=== PATIENT | female | born 1960 | race Caucasian/White ===

== ENCOUNTER 2018-05-18 08:56 | Outpatient (CLI) | payer OTHER | END 2018-05-18 08:57 | disposition home or self-care (01) | LOC: BICRAD 08:56 | PROVIDERS: ATTEND Family Medicine | DX: S20.212A Contusion of left front wall of thorax, initial encounter (principal) ==

== ENCOUNTER 2020-06-12 00:39 | Inpatient (IN) | payer BC, OTHER ==
[2020-06-12] MEDS ORDERED: Morphine 4 MG/ML VIAL SLOW IVP PRN ×2 (02:29→19:29)
[2020-06-12] MEDS ORDERED: Ondansetron ODT 4 MG TAB SL PRN (02:30)
[2020-06-12] MEDS ORDERED: Ondansetron PF 4 MG/2 ML Vial IVP PRN ×2 (02:30→19:29)
[2020-06-12] MEDS ORDERED: Sodium Chloride 0.9% (PF) 10 ML VIAL FS PRN (02:30)
[2020-06-12] MEDS: Piperacillin/Tazobactam 4.5 GM in Sodium Chloride 0.9% 100 ML IVPB SCH ×3 (02:41→23:20)
[2020-06-12 03:02] VITALS: BMI 49.8
[2020-06-12] MEDS ORDERED: PROPOFOL 200 MG/20 ML VIAL ONE (09:00)
[2020-06-12] MEDS ORDERED: Glycopyrrolate 0.2 MG/ML 5 ML SYRINGE ONE (09:00)
[2020-06-12] MEDS ORDERED: Rocuronium Bromide 10 MG/ML (10ML VIAL) ONE (09:00)
[2020-06-12] MEDS ORDERED: Succinylcholine Chloride 20 MG/ML 10 ml SYRINGE FS ONE (09:00)
[2020-06-12] MEDS ORDERED: Ketorolac Tromethamine 30 MG/ML VIAL ONE (09:00)
[2020-06-12] MEDS ORDERED: EPHEDRINE 25 MG/5 ML SYRINGE ONE (09:00)
[2020-06-12] MEDS ORDERED: Pantoprazole 40 MG VIAL IVP SCH (09:00)
[2020-06-12] MEDS ORDERED: Ondansetron PF 4 MG/2 ML Vial ONE (09:00)
[2020-06-12] MEDS ORDERED: Lidocaine 1% PF 5 ML VIAL ONE (09:00)
[2020-06-12] MEDS ORDERED: Dexamethasone 20 MG/5 ML VIAL ONE (09:00)
--- NOTE | 2020-06-12 10:46 | HP ---
CHIEF COMPLAINT: Abdominal pain. HISTORY OF PRESENT ILLNESS: The patient is a morbidly obese 60-year-old white female. She gives about a 4- to 5-day history of fairly severe abdominal pain. This has been evaluated in outpatient settings and treated with antibiotics without change in symptoms. She denies any abdominal symptoms previously. She has had a decreased appetite, but no vomiting. She has still had bowel movements, but has noted some change in the quality or characteristics of her bowel function recently. She eventually presented to the emergency room in [place] last night, where CT scan was performed revealing evidence of small-bowel perforation with what appeared to be mesenteric air. There was no diffuse abdominal air and she was hemodynamically stable with a surprisingly normal white blood cell count. She was transferred to this facility and admitted to my service. She has been n.p.o. and placed on intravenous antibiotics. She has never had a colonoscopy. She denies any knowledge of any gastrointestinal malignancy or inflammatory process. She denies any history of recent trauma. She is unaware of eating anything that may have led to a perforation. PAST MEDICAL HISTORY: Significant for depression. 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 PAST SURGICAL HISTORY: 1. Ganglion cyst removal from her right hand. 2. Removal of left thigh liposarcoma. MEDICATIONS: 1. Wellbutrin. 2. Lexapro. ALLERGIES: NO KNOWN DRUG ALLERGIES. PRIMARY CARE PHYSICIAN: Dr. Meza. PERSONAL AND SOCIAL HISTORY: She lives with her cousin in [place]. She is not and has no children. She does not smoke. She drinks alcohol rarely. She works at [email or web address]. REVIEW OF SYSTEMS: A 10-system review was obtained and is otherwise unremarkable. FAMILY HISTORY: Noncontributory. PHYSICAL EXAMINATION: VITAL SIGNS: This morning, she is afebrile with entirely normal vital signs. Pulse is 72. She is breathing without difficulty and comfortable when laying still. GENERAL: She is a well-developed, well-nourished, obese, pleasant white female, resting in no distress. She is alert and oriented x3. She is 5 feet 5 inches tall and weighs about 300 pounds. HEAD, EYES, EARS, NOSE, AND THROAT: Unremarkable. NECK: Supple without mass or tenderness. LUNGS: Clear to auscultation throughout. CARDIAC: Regular rate and rhythm without murmur. ABDOMEN: Soft on the right side, but she has tenderness with some guarding on the left side. Bowel sounds are present, but hypoactive. EXTREMITIES: Unremarkable. LABORATORY DATA: From last night revealed normal white blood cell count of 9.4. She is not anemic and her electrolytes are stable. ASSESSMENT: The patient with a small bowel perforation. This appears to be in the mid segment of her small bowel. The etiology of this perforation is not apparent. Differential could include neoplasm, inflammatory process (Crohn's), malignancy, foreign body. I recommend exploration with small bowel resection. I would anticipate performing this as a laparoscopic hand assisted procedure. I described the operation in detail with the patient as well as potential risks. She understands and agrees to proceed with surgery at this time. Job ID: [id number]
[2020-06-12 13:55] LABS: SARS-CoV-2 MS2 Positive; SARS-CoV-2 N Gene Negative; SARS-CoV-2 S Gene Negative; SARS-CoV-2 by NAA Not Detected (NotDetected); SARS-CoV-2 orf1ab Negative
[2020-06-12] MEDS ORDERED: Lidocaine 1% w/Epinephrine 1:100K 20 ML VIAL ONE (14:38)
[2020-06-12] MEDS ORDERED: Bupivacaine 0.25% HCL 30 ML VIAL ONE (14:38)
[2020-06-12] MEDS ORDERED: Piperacillin/Tazobactam 4.5 GM in Sodium Chloride 0.9% 100 ML IVPB SCH (15:15)
[2020-06-12] MEDS ORDERED: HYDROmorphone 2 MG/ML VIAL ONE (15:44)
[2020-06-12] MEDS ORDERED: Fentanyl 100 MCG/2 ML VIAL ONE (15:44)
[2020-06-12] MEDS ORDERED: Phenylephrine 10 MG/ML VIAL ONE (15:45)
[2020-06-12] MEDS ORDERED: SUGAMMADEX SODIUM 500 MG/5 ML VIAL ONE (18:12)
[2020-06-12] MEDS ORDERED: Naloxone HCl 0.4 mg/ml Vial ONE (18:21)
[2020-06-12] MEDS ORDERED: PACU-Morphine 4MG/ML VIAL SLOW IVP PRN (18:41)
[2020-06-12] MEDS ORDERED: Promethazine HCl 25 MG/ML VIAL IM PRN ×2 (18:41→19:29)
[2020-06-12] MEDS ORDERED: Ondansetron HCl/PF 4 MG/2 ML Vial IVP PRN (18:41)
[2020-06-12] MEDS ORDERED: HYDROmorphone 2 MG/ML VIAL SLOW IVP PRN (18:41)
[2020-06-12] MEDS ORDERED: Promethazine HCl 25 MG/ML VIAL SLOW IVP PRN (18:41)
[2020-06-12] MEDS ORDERED: hydrALAZINE 20 MG/ML VIAL SLOW IVP PRN (19:29)
[2020-06-12] MEDS ORDERED: Morphine 2 MG/ML VIAL SLOW IVP PRN (19:29)
[2020-06-12] MEDS: Famotidine/PF 20 mg/2ml Vial SLOW IVP SCH (21:53)
[2020-06-12] MEDS: D5 1/2 NS w/20 mEq KCL 1,000 ML IV SCH (21:53)
[2020-06-12] MEDS: Famotidine 20 MG TAB PO SCH (21:54)
[2020-06-12] MEDS: Enoxaparin Sodium 40 MG/0.4 ML SYRINGE SC SCH (21:54)
[2020-06-12] MEDS: Ketorolac Tromethamine 30 MG/ML VIAL IVP SCH (23:21)
[2020-06-13] MEDS: D5 1/2 NS w/20 mEq KCL 1,000 ML IV SCH ×3 (04:21→23:55)
[2020-06-13] MEDS: Ketorolac Tromethamine 30 MG/ML VIAL IVP SCH ×4 (06:02→23:56)
[2020-06-13 06:27] LABS: #Lymphocytes 0.7 thou/uL (1.20-3.40); #Monocytes 0.4 thou/uL (0.11-0.59); #Neutrophils 9.8 thou/uL (1.40-6.50); %Basophils 0.2 % (0.0-1.0); %Eosinophils 0.1 % (0.0-10.0); %Lymphocytes 6.7 % (21.0-51.0); %Monocytes 3.3 % (0.0-10.0); %Neutrophils 89.7 % (42.0-75.0); Mean Corpuscular HGB CONC 31.4 g/dL (32.0-36.0); Mean Corpuscular Hemoglobin 27.9 pg (27.0-31.0); Mean Corpuscular Volume 88.9 fL (78.0-98.0); Mean Platelet Volume 7.4 fL (7.4-10.4); Platelet Count 289 thou/uL (130-400); RBC Distribution Width 13.4 % (11.5-14.5); Red Blood Cell (RBC) Count 4.29 mill/uL (4.20-5.40)
[2020-06-13 06:49] LABS: Anion Gap 11 mmol/L (10-20); BUN (Urea Nitrogen) 8 mg/dL (9.8-20.1); Calc. Creatinine Clearance 169 mL/min (70-130); Calcium 8.4 mg/dL (7.8-10.44); Carbon Dioxide 25 mmol/L (22-29); Chloride 104 mmol/L (98-107); Estimated GFR-MDRD 78; Glucose 170 mg/dL (70-105); Sodium 136 mmol/L (136-145)
[2020-06-13] MEDS: Famotidine 20 MG TAB PO SCH ×2 (07:55→21:02)
[2020-06-13] MEDS: Piperacillin/Tazobactam 4.5 GM in Sodium Chloride 0.9% 100 ML IVPB SCH ×2 (07:55→17:26)
[2020-06-13] MEDS: Famotidine/PF 20 mg/2ml Vial SLOW IVP SCH ×2 (07:56→21:03)
--- NOTE | 2020-06-13 15:52 | OP ---
DATE OF PROCEDURE: 06/12/2020 PREOPERATIVE DIAGNOSIS: Small-bowel perforation. POSTOPERATIVE DIAGNOSIS: Small-bowel perforation with minimal evidence of peritonitis. PROCEDURE PERFORMED: Laparoscopic-assisted segmental small bowel resection. ANESTHESIA: General endotracheal. INDICATIONS: The patient is a morbidly obese, 60-year-old white female. She had presented to the hospital with a 4 or 5-day history of progressive abdominal pain. She had diminished appetite, but was afebrile. She had focal palpable tenderness. I recommended laparoscopic small bowel resection as the etiology of the perforation was unknown. DESCRIPTION OF OPERATION: Informed consent was obtained and the patient was taken to the operating room, where general endotracheal anesthesia was obtained with the patient in supine position. Abdomen was prepped with ChloraPrep and draped in sterile fashion. Local anesthetic was infiltrated using a mixture of 1% lidocaine with epinephrine and 0.25% Marcaine. A 5 mm incision was created in the right upper lateral abdomen and Veress needle was passed through this incision into the peritoneal cavity and pneumoperitoneum was established using carbon dioxide up to pressure of 15 mmHg. A 5 mm trocar port was passed through the same incision and laparoscopic camera was passed through this port. Under direct vision, a second 5 mm right lower abdominal port was placed. Utilizing these two ports, I reflected the omentum in a cephalad direction. This quickly revealed the indurated/inflamed segment of small bowel that was protruding from the remainder of the bowel on the patient's left side of the abdomen. There was no evidence of peritonitis. There was certainly no blood or purulence noted within the abdominal cavity. An 8 mm oblique left upper abdominal incision was created after local anesthetic was infiltrated. Muscle splitting was used to gain access into the abdominal cavity. She had a very thick layer of subcutaneous fatty tissue. The Mich wound retractor was placed. I was able to quickly identify and deliver externally the inflamed segment of small bowel. It was approximately 9 inches of small bowel that was folded back on itself in a couple of areas. It was very thickened and adherent only to itself. These adhesions were broken down during the course of mobilizing it externally. Again, no purulence was noted. Only inflammation and induration. I identified segments of small bowel proximal and distal that were entirely normal and chose these for an anastomosis. I utilized the LigaSure device to dissect the mesentery including all of it that was thickened and inflamed, extending down into the base of the mesentery. Due to the thickness of the mesentery deeply, even using the LigaSure, I had to oversew a few bleeding sites. Once the mesentery had been fully mobilized between these two segments, I performed a double-stapled anastomosis using the CAESAR 75 stapler. During the time that the bowel was open, there were sterile towels placed circumferentially and segregated instruments were utilized. Immediately after the bowel was closed, all instrumentation was passed off the field and gloves were changed and the operation continued. The area of the bowel that was external was irrigated and all irrigant was aspirated. The anastomosis was then buttressed with several interrupted sutures of 3-0 silk. The mesenteric defect was closed with a running suture of 3-0 Vicryl. The bowel was then dropped back down to the abdominal cavity. I reinstituted laparoscopy. I placed my left hand through the GelPort, and utilizing this, I was able to retract the multiple loops of bowel out of her pelvis to be able to irrigate the pelvis. Again, no significant bloody or purulent material was noted. The anastomosis was widely patent and viable. All irrigant from within the abdomen was aspirated. All ports and instruments were removed under direct vision. The Mich wound retractor was removed as well. All laparoscopic instrumentation was passed off the field. Sterile closing instrumentation was utilized. The fascial defect at the left abdominal incision was closed in 2 layers using #1 PDS. The wound was copiously irrigated after each layer was closed using approximately 1 L each time. Additional local anesthetic was infiltrated into the wound and the interfascial plane during closure. The Haleigh fascia was approximated with interrupted sutures of 3-0 Vicryl. The skin edge was approximated with a running subcuticular suture of 4-0 Monocryl. Dermabond was placed externally. There were no complications during the surgery. Blood loss was negligible throughout. She tolerated the procedure well and was taken to recovery room in stable condition. Job ID: [id number]
[2020-06-13] MEDS ORDERED: HYDROcodone/Acetaminophen 7.5/325 mg Tablet PO PRN ×2 (18:30)
[2020-06-13] MEDS ORDERED: diphenhydrAMINE 25 MG CAP PO PRN (18:51)
[2020-06-13] MEDS ORDERED: traMADol HCl 50 MG TAB PO PRN ×2 (19:22)
[2020-06-13] MEDS ORDERED: Ibuprofen 600 MG TAB PO PRN ×2 (19:22→19:23)
[2020-06-13] MEDS ORDERED: Acetaminophen 500 MG TAB PO PRN (19:22)
--- NOTE | 2020-06-13 19:49 | PRG ---
DATE OF SERVICE: 06/13/2020 SUBJECTIVE: Nhi Raymond is doing well today. She is tolerating liquids. She has no complaints. OBJECTIVE: VITAL SIGNS: Temperature 97.7 degrees, 69, 149/82. LUNGS: Clear to auscultation. CARDIAC: Regular rate and rhythm. No murmur or gallop. ABDOMEN: Soft. Occasional bowel sounds. Surgical wounds look good. No evidence of infection. LABORATORY DATA: White count 11, hemoglobin 12. Basic metabolic profile normal. ASSESSMENT AND PLAN: Doing well tolerating her liquids. We will advance her to a full liquid diet tonight and a soft diet tomorrow as tolerated. Continue activity. It is possible she could be discharged home soon. Job ID: [id number]
[2020-06-13] MEDS: Enoxaparin Sodium 40 MG/0.4 ML SYRINGE SC SCH (21:02)
[2020-06-14] MEDS: D5 1/2 NS w/20 mEq KCL 1,000 ML IV SCH (05:37)
[2020-06-14] MEDS: Ketorolac Tromethamine 30 MG/ML VIAL IVP SCH ×3 (05:39→17:35)
[2020-06-14] MEDS: Famotidine 20 MG TAB PO SCH ×2 (08:44→21:18)
[2020-06-14] MEDS: Escitalopram Oxalate 20 mg Tablet PO SCH (08:44)
[2020-06-14] MEDS: Bupropion 150 MG XL TAB PO SCH (08:44)
[2020-06-14] MEDS: Polyethylene Glycol 3350 17 GM Packet PO SCH (08:45)
[2020-06-14] MEDS: Famotidine/PF 20 mg/2ml Vial SLOW IVP SCH (08:45)
[2020-06-14] MEDS ORDERED: Ergocalciferol 1.25 MG(50,000 UNITS) CAP PO SCH (09:00)
--- NOTE | 2020-06-14 12:29 | PRG ---
DATE OF SERVICE: 06/14/2020 SUBJECTIVE: Ms. Raymond is doing well today. She is tolerating her diet. She has started regular food today. She had a small bowel movement. OBJECTIVE: VITAL SIGNS: Temperature 98 degrees, pulse 74, blood pressure 168/84. LUNGS: Clear to auscultation. CARDIAC: Regular rate and rhythm without murmur or gallop. ABDOMEN: Obese, soft. Bowel sounds present. Wounds, laparoscopic, well healed. LABORATORY DATA: No labs today. ASSESSMENT AND PLAN: Doing well status post small-bowel resection. Pathology pending. Anticipate discharge home tomorrow. Job ID: [id number]
[2020-06-14] MEDS: Enoxaparin Sodium 40 MG/0.4 ML SYRINGE SC SCH (21:18)
[2020-06-15] MEDS: Ketorolac Tromethamine 30 MG/ML VIAL IVP SCH ×3 (00:28→12:26)
[2020-06-15] MEDS: Polyethylene Glycol 3350 17 GM Packet PO SCH (08:31)
[2020-06-15] MEDS: Escitalopram Oxalate 20 mg Tablet PO SCH (08:31)
[2020-06-15] MEDS: Famotidine 20 MG TAB PO SCH (08:32)
[2020-06-15] MEDS: Bupropion 150 MG XL TAB PO SCH (08:33)
[2020-06-15 11:40] VITALS: TEMP 98.5
[2020-06-15 15:50] VITALS: BP 157/88
--- NOTE | 2020-06-18 05:22 | PQF ---
CLINICAL DOCUMENTATION CLARIFICATION FORM: Dear :Irving Oconnell Date / Time: 06/18/20520 Please exercise your independent, professional judgment in responding to the clarification form. Clinical indicators are provided on the bottom of this form for your review Final Diagnosis on the Pathology report: Perforated diverticulitis with associated abscess formation Clarification of Pathology report: Please check appropriate box(es): [ x ] Agree w the pathology finding of: Perforated diverticulitis with associated abscess formation [ ] Other explanation of pathology findings (please specify) [ ] Other diagnosis [ ] Unable to determine Physician Signature: MWAlf Date/Time:06/18/20 For continuity of documentation, please document condition throughout progress notes and discharge summary. Thank You. To be completed by CDI/Coding staff for physician review: Present Clinical Indicators - Signs / Symptoms / Labs Results and Location in Medical Record [ X] Perforated diverticulitis with associated abscess formation Pathology report 06/15 DR Robledo [ X] BP 151/91, Pulse 72, Resp 18, Temp 98.3 Vital signs 06/12 [ X] WBC 11.0, Plt count 289, Neutrophils 89.7 Laboratory 06/13 [ X] Pt with small bowel perforation. This appears to be in mid segment of small bowel H&P p2 06/12 Dr Oconnell [ X] Small bowel Perforation with minimal evidence of peritonitis Operative report Dr Oconnell 06/12 [ X] CC: Abdominal pain H&P p1 06/12 Dr Oconnell Present Risk Factors Results and Location in Medical Record [ X] 60 year-old Female H&P p1 06/12 Dr Oconnell [ X] Morbid Obese H&P p1 06/12 Dr Oconnell Present Treatments Results and Location in Medical Record [ X] IV Zosyn 4.5 gm DEC 28 [ X] IVF NS 1L DEC 28 [ X] Lap-assisted segmental small bowel Operative report Dr Oconnell 06/12 [facility] Signature: Quin Colliersuleiman Phone #: ext [phone] Date/Time: 06/18/20520 This is a permanent part of the Medical Record [facility]
== END 2020-06-15 14:01 | disposition home or self-care (01) | DRG 329 ==
LOC: ERS 00:39 → SURG A 01:11
PROVIDERS: ADMIT Specialist; ATTEND Specialist
PROC: 0DB80ZZ Excision of Small Intestine, Open Approach (ICD-10-PCS; principal; 2020-06-12)
DX: K57.00 Diverticulitis of small intestine with perforation and abscess without bleeding (principal); K65.9 Peritonitis, unspecified; Z68.42 Body mass index [BMI] 45.0-49.9, adult; F32.9 Major depressive disorder, single episode, unspecified; Z20.828 Contact with and (suspected) exposure to other viral communicable diseases; E66.01 Morbid (severe) obesity due to excess calories; Z85.828 Personal history of other malignant neoplasm of skin; Z79.899 Other long term (current) drug therapy
CPT/HCPCS: 36415; 36416; 80048; 85025; 87635; 88307; 99285; C9113; J1100; J1170; J1650; J1885; J2270; J2310; J2370; J2405; J2543; J2704; J3010; J3480; J3490; Q0163; S0020; S0028; U0003

== ENCOUNTER 2023-02-13 16:43 | Emergency (ER) | payer BC ==
[2023-02-13 17:31] LABS: #Basophils 0.1 thou/uL (0.0-0.2); #Eosinphils 0.2 thou/uL (0.0-0.7); #Monocytes 0.5 thou/uL (0.11-0.59); %Eosinophils 2.2 % (0.0-10.0); %Lymphocytes 34.6 % (21.0-51.0); %Monocytes 5.2 % (0.0-10.0); %Neutrophils 56.9 % (42.0-75.0); Hemoglobin 14.4 g/dL (12.0-16.0); Mean Corpuscular HGB CONC 33.9 g/dL (32.0-36.0); Mean Corpuscular Hemoglobin 29.5 pg (27.0-31.0); Mean Corpuscular Volume 86.9 fl (78.0-98.0); Mean Platelet Volume 7.1 fL (7.4-10.4); Platelet Count 285 10x3/uL (130-400); Red Blood Cell (RBC) Count 4.89 mill/uL (4.20-5.40); White Blood Cell (WBC) Count 8.7 10x3/uL (4.8-10.8)
[2023-02-13 17:52] LABS: ALT (SGPT) 11 U/L (8-55); AST (SGOT) 16 U/L (5-34); Albumin 4.2 g/dL (3.4-4.8); Alkaline Phosphatase 91 U/L (40-110); Anion Gap 15 mmol/L (10-20); BUN (Urea Nitrogen) 16 mg/dL (9.8-20.1); Bilirubin, Total 0.4 mg/dL (0.2-1.2); Calc. Creatinine Clearance 0 mL/min (70-130); Calcium 9.5 mg/dL (7.8-10.44); Carbon Dioxide 26 mmol/L (23-31); Chloride 102 mmol/L (98-107); Estimated GFR 74; Globulin 3.1 g/dL (2.4-3.5); Glucose 88 mg/dL (80-115); Potassium 3.7 mmol/L (3.5-5.1); Protein, Total 7.3 g/dL (5.8-8.1); Sodium 139 mmol/L (136-145)
== END 2023-02-13 20:37 | disposition home or self-care (01) ==
LOC: ERS 16:43
DX: M79.661 Pain in right lower leg (principal); E11.9 Type 2 diabetes mellitus without complications; E66.9 Obesity, unspecified
CPT/HCPCS: 36415; 80053; 83880; 85025

== ENCOUNTER 2023-11-08 15:32 | Outpatient (CLI) | payer BC ==
[2023-11-08 16:52] LABS: #Basophils 0.1 10x3/uL (0.0-0.2); #Eosinphils 0.2 10x3/uL (0.0-0.5); #Monocytes 0.5 10x3/uL (0.0-1.1); #Neutrophils 5.5 10x3/uL (1.5-8.4); %Eosinophils 1.8 % (0.0-6.0); %Lymphocytes 33.8 % (18.0-47.0); %Monocytes 5.6 % (0.0-10.0); %Neutrophils 57.5 % (40.0-75.0); Hematocrit 42.7 % (34.9-44.5); Hemoglobin 13.9 g/dL (12.0-15.5); Mean Corpuscular HGB CONC 32.6 g/dL (32.0-36.0); Mean Corpuscular Hemoglobin 27.7 pg (27.0-33.0); Mean Corpuscular Volume 85.1 fl (81.6-98.3); Mean Platelet Volume 9.5 fl (7.4-10.4); Platelet Count 314 10x3/uL (150-450); RBC Distribution Width 13.8 % (11.5-14.5); Red Blood Cell (RBC) Count 5.02 10x6/uL (3.90-5.03); White Blood Cell (WBC) Count 9.5 10x3/uL (3.5-10.5)
[2023-11-08 17:37] LABS: Prothrombin Time 10.3 sec (9.5-12.1)
[2023-11-08 17:38] LABS: Anion Gap 14 mmol/L (10-20); BUN (Urea Nitrogen) 15 mg/dL (9.8-20.1); Calc. Creatinine Clearance 0 mL/min (70-130); Carbon Dioxide 26 mmol/L (23-31); Chloride 103 mmol/L (98-107); Estimated GFR 79; Glucose 87 mg/dL (80-115); Potassium 3.8 mmol/L (3.5-5.1); Sodium 139 mmol/L (136-145)
== END 2023-11-08 15:33 | disposition home or self-care (01) ==
LOC: LABBT 15:32
PROVIDERS: ATTEND Orthopaedic Surgery
DX: Z01.818 Encounter for other preprocedural examination (principal); M19.012 Primary osteoarthritis, left shoulder
CPT/HCPCS: 80048; 85025; 85610; 93005; 93010

== ENCOUNTER 2023-11-09 05:47 | Observation (INO) | payer BC ==
[2023-11-08 16:28] VITALS: BMI 42.4
[2023-11-09] MEDS ORDERED: Vancomycin (BATCH) 1.5 GM/300 ML BAG ONE (06:27)
[2023-11-09] MEDS ORDERED: Sodium Chloride 0.9% 100 ML ONE ×2 (06:27→06:51)
[2023-11-09] MEDS ORDERED: Tranexamic Acid 1,000 MG/10 ML VIAL ONE (06:27)
[2023-11-09] MEDS ORDERED: Midazolam HCl 2 mg/2 ml Vial ONE (06:40)
[2023-11-09] MEDS ORDERED: fentaNYL 50 mcg/mL 1 mL Vial ONE (06:40)
[2023-11-09] MEDS ORDERED: CEFAZOLIN 2 GM VIAL ONE (06:51)
[2023-11-09] MEDS ORDERED: PROPOFOL 20 ML ONE (07:06)
[2023-11-09] MEDS ORDERED: Bupivacaine HCl 0.5%/Epinephrine 1:200,000/PF 30 ml Vial ONE (07:15)
[2023-11-09] MEDS ORDERED: Lidocaine 1% PF 5 ML VIAL ONE (07:15)
[2023-11-09] MEDS ORDERED: ePHEDrine Sulfate 50 MG/10 ML VIAL ONE (07:37)
[2023-11-09] MEDS ORDERED: PHENYLEPHRINE-NS 100 MCG/ML 10 ML SYRINGE ONE (07:45)
[2023-11-09] MEDS ORDERED: fentaNYL 50 mcg/mL 1 mL Vial SLOW IVP PRN (07:50)
[2023-11-09] MEDS ORDERED: HYDROmorphone 2 MG/ML VIAL ONE (07:58)
[2023-11-09] MEDS ORDERED: Bupivacaine PF 0.5% 30 ML VIAL ONE (07:59)
[2023-11-09] MEDS ORDERED: Ondansetron PF 4 MG/2 ML Vial IVP PRN ×2 (08:00→09:34)
[2023-11-09] MEDS ORDERED: Promethazine HCl 25 MG/ML VIAL IM PRN ×2 (08:00→08:25)
[2023-11-09] MEDS ORDERED: traMADol HCl 50 MG TAB PO PRN ×2 (08:00)
[2023-11-09] MEDS ORDERED: HYDROcodone/Acetaminophen 10/325 mg Tablet PO PRN (08:00)
[2023-11-09] MEDS ORDERED: Ropivacaine 0.2% 550 ML 550 ML NERVE BLCK SCH (08:00)
[2023-11-09] MEDS ORDERED: Zolpidem Tartrate 5 MG TAB PO PRN ×2 (08:00→09:34)
[2023-11-09] MEDS ORDERED: PACU-Morphine 4MG/ML VIAL SLOW IVP PRN (08:25)
[2023-11-09] MEDS ORDERED: HYDROmorphone 2 MG/ML VIAL SLOW IVP PRN (08:25)
[2023-11-09] MEDS ORDERED: Ondansetron HCl/PF 4 MG/2 ML Vial IVP PRN (08:25)
[2023-11-09] MEDS ORDERED: Ketorolac Tromethamine 30 MG (1 mL) VIAL ONE (09:30)
[2023-11-09] MEDS ORDERED: Dexamethasone 20 MG/5 ML VIAL ONE (09:30)
[2023-11-09] MEDS ORDERED: Ondansetron PF 4 MG/2 ML Vial ONE (09:30)
[2023-11-09] MEDS ORDERED: Methocarbamol 1 GM (10 mL) VIAL SLOW IVP PRN (09:34)
[2023-11-09] MEDS ORDERED: diphenhydrAMINE 50 MG CAP PO PRN (09:34)
[2023-11-09] MEDS ORDERED: Bisacodyl 10 MG SUPP PR PRN (09:34)
[2023-11-09] MEDS ORDERED: Famotidine 20 MG TAB PO SCH ×2 (09:34→11:45)
[2023-11-09] MEDS ORDERED: Acetaminophen 325 MG TAB PO PRN (09:34)
[2023-11-09] MEDS ORDERED: Methocarbamol 500 MG TAB PO PRN (09:34)
[2023-11-09] MEDS ORDERED: Ondansetron ODT 4 MG TAB PO PRN (09:34)
[2023-11-09] MEDS ORDERED: Milk Of Magnesia 30 ML UDCUP PO PRN (09:34)
[2023-11-09] MEDS ORDERED: fentaNYL PF 100 MCG/2 ML SYRINGE ONE (09:59)
[2023-11-09] MEDS ORDERED: HYDROmorphone 0.5 MG/0.5 ML SYRINGE ONE (10:14)
[2023-11-09] MEDS: Dextrose 5 %-0.45 % NaCl 1,000 ML IV SCH (12:05)
[2023-11-09] MEDS: Ketorolac Tromethamine 30 MG (1 mL) VIAL IVP SCH ×2 (12:39→18:19)
[2023-11-09] MEDS: CEFAZOLIN 2 GM in Sodium Chloride 0.9% 100 ML IVPB SCH (15:21)
[2023-11-09] MEDS: Famotidine 20 MG TAB PO SCH (21:28)
[2023-11-09] MEDS ORDERED: Escitalopram Oxalate 20 mg Tablet PO SCH (21:30)
[2023-11-09] MEDS: HYDROcodone/Acetaminophen 10/325 mg Tablet PO PRN (21:32)
[2023-11-10] MEDS: Ketorolac Tromethamine 30 MG (1 mL) VIAL IVP SCH ×2 (00:15→06:07)
[2023-11-10] MEDS: CEFAZOLIN 2 GM in Sodium Chloride 0.9% 100 ML IVPB SCH (00:16)
[2023-11-10] MEDS: Dextrose 5 %-0.45 % NaCl 1,000 ML IV SCH (01:07)
[2023-11-10 05:38] VITALS: TEMP 97.8
[2023-11-10] MEDS: Famotidine 20 MG TAB PO SCH (08:06)
[2023-11-10 08:24] VITALS: BP 132/77
[2023-11-10] MEDS: HYDROcodone/Acetaminophen 10/325 mg Tablet PO PRN (10:56)
== END 2023-11-10 11:00 | disposition home or self-care (01) ==
LOC: SDC 05:47 → SURG B 11:07
PROVIDERS: ADMIT Orthopaedic Surgery; ATTEND Orthopaedic Surgery
PROC: 0RRK0JZ Replacement of Left Shoulder Joint with Synthetic Substitute, Open Approach (ICD-10-PCS; principal; 2023-11-09)
DX: M19.012 Primary osteoarthritis, left shoulder (principal); M75.22 Bicipital tendinitis, left shoulder; E66.9 Obesity, unspecified; G47.30 Sleep apnea, unspecified; E78.5 Hyperlipidemia, unspecified; K21.9 Gastro-esophageal reflux disease without esophagitis; M19.90 Unspecified osteoarthritis, unspecified site; F32.9 Major depressive disorder, single episode, unspecified; Z98.890 Other specified postprocedural states; Z79.899 Other long term (current) drug therapy; Z68.41 Body mass index [BMI] 40.0-44.9, adult
CPT/HCPCS: A4306; C1713; C1776; J1100; J1170; J1885; J2250; J2405; J2704; J2795; J3010; J3370; J3490; S0020

== ENCOUNTER 2024-04-10 08:30 | Outpatient (CLI) | payer BC ==
[2024-04-10 11:01] LABS: Bilirubin Neg (Negative); Blood, Urine Negative (Negative); Clarity Clear (Clear); Glucose, Urine (Dipstick) Normal (Negative); Ketone, Urine Negative (Negative); Leukocyte 25 (Negative); Nitrite Negative (Negative); Protein, Urine (Dipstick) Negative (Neg-Trace); Specific Gravity, Urine 1.015 (1.005-1.030)
[2024-04-10 11:18] LABS: #Basophils 0.07 10x3/uL (0.0-0.2); #Eosinphils 0.19 10x3/uL (0.0-0.5); #Monocytes 0.45 10x3/uL (0.0-1.1); #Neutrophils 4.82 10x3/uL (1.5-8.4); %Basophils 0.9 % (0.0-2.0); %Eosinophils 2.4 % (0.0-6.0); %Lymphocytes 29.7 % (18.0-47.0); %Monocytes 5.7 % (0.0-10.0); Hematocrit 42.6 % (34.9-44.5); Hemoglobin 14.2 g/dL (12.0-15.5); Mean Corpuscular HGB CONC 33.3 g/dL (32.0-36.0); Mean Corpuscular Hemoglobin 28.6 pg (27.0-33.0); Mean Corpuscular Volume 85.7 fL (81.6-98.3); Mean Platelet Volume 9.9 fL (7.4-10.4); Platelet Count 291 10x3/uL (150-450); RBC Distribution Width 14.3 % (11.5-14.5); Red Blood Cell (RBC) Count 4.97 10x6/uL (3.90-5.03); White Blood Cell (WBC) Count 7.9 10x3/uL (3.5-10.5)
[2024-04-10 11:25] LABS: Prothrombin Time 10.5 sec (9.5-12.1)
[2024-04-10 12:26] LABS: Anion Gap 13 mmol/L (10-20); BUN (Urea Nitrogen) 13 mg/dL (9.8-20.1); Calc. Creatinine Clearance 0 mL/min (70-130); Carbon Dioxide 27 mmol/L (23-31); Chloride 105 mmol/L (98-107); Estimated GFR 79; Glucose 84 mg/dL (80-115); Sodium 141 mmol/L (136-145)
== END 2024-04-10 08:31 | disposition home or self-care (01) ==
LOC: LABBT 08:30
PROVIDERS: ATTEND Orthopaedic Surgery
DX: Z01.818 Encounter for other preprocedural examination (principal); M17.12 Unilateral primary osteoarthritis, left knee
CPT/HCPCS: 71046; 80048; 81003; 85025; 85610; 87081; 93005; 93010

== ENCOUNTER 2024-04-10 15:00 | Outpatient (CLI) | payer OTHER | END 2024-04-10 15:01 | disposition home or self-care (01) | LOC: BICCT 15:00 | PROVIDERS: ATTEND Orthopaedic Surgery | DX: M17.12 Unilateral primary osteoarthritis, left knee (principal) ==

== ENCOUNTER 2024-04-15 07:00 | Observation (INO) | payer BC ==
[2024-04-15] MEDS ORDERED: Vancomycin (BATCH) 1.5 GM/300 ML BAG ONE (07:26)
[2024-04-15] MEDS ORDERED: Sodium Chloride 0.9% 100 ML ONE ×2 (07:26→09:29)
[2024-04-15] MEDS ORDERED: Tranexamic Acid 1,000 MG/10 ML VIAL ONE (07:26)
[2024-04-15] MEDS ORDERED: fentaNYL PF 100 MCG/2 ML SYRINGE ONE (07:57)
[2024-04-15] MEDS ORDERED: PROPOFOL 20 ML ONE (07:57)
[2024-04-15] MEDS ORDERED: Lidocaine 1% (PF) 30 ML VIAL ONE ×2 (08:42→09:26)
[2024-04-15] MEDS ORDERED: Midazolam HCl 2 mg/2 ml Vial ONE (08:42)
[2024-04-15] MEDS ORDERED: Ropivacaine 0.5% HCl/PF (150 MG/30 ML VIAL) ONE (08:42)
[2024-04-15] MEDS ORDERED: fentaNYL 50 mcg/mL 1 mL Vial ONE ×2 (08:42→12:34)
[2024-04-15] MEDS ORDERED: Bupivacaine PF 0.5% 30 ML VIAL ONE (09:26)
[2024-04-15] MEDS ORDERED: methylPREDNISolone Acetate 40 mg/ml Vial ONE (09:26)
[2024-04-15] MEDS ORDERED: CEFAZOLIN 2 GM VIAL ONE (09:29)
[2024-04-15] MEDS ORDERED: Promethazine HCl 25 MG/ML VIAL IM PRN ×2 (09:45→12:20)
[2024-04-15] MEDS ORDERED: Zolpidem Tartrate 5 MG TAB PO PRN ×2 (09:45→12:20)
[2024-04-15] MEDS ORDERED: Ondansetron PF 4 MG/2 ML Vial IVP PRN ×2 (09:45→12:20)
[2024-04-15] MEDS ORDERED: traMADol HCl 50 MG TAB PO PRN (09:45)
[2024-04-15] MEDS ORDERED: HYDROcodone/Acetaminophen 10/325 mg Tablet PO PRN (09:45)
[2024-04-15] MEDS ORDERED: Ropivacaine 0.2% 550 ML 550 ML NERVE BLCK SCH (09:45)
[2024-04-15] MEDS ORDERED: fentaNYL 50 mcg/mL 1 mL Vial SLOW IVP PRN (09:46)
[2024-04-15] MEDS ORDERED: Glycopyrrolate 0.2 MG/ML 5 ML SYRINGE ONE (09:54)
[2024-04-15] MEDS ORDERED: PHENYLEPHRINE-NS 100 MCG/ML 10 ML SYRINGE ONE ×3 (11:21→12:02)
[2024-04-15] MEDS ORDERED: Ondansetron PF 4 MG/2 ML Vial ONE (12:04)
[2024-04-15] MEDS ORDERED: Acetaminophen 325 MG TAB PO PRN (12:20)
[2024-04-15] MEDS ORDERED: diphenhydrAMINE 25 MG CAP PO PRN (12:20)
[2024-04-15] MEDS ORDERED: Tranexamic Acid 1,000 MG in Sodium Chloride 0.9% 100 ML IVPB SCH (12:30)
[2024-04-15] MEDS ORDERED: Ketorolac Tromethamine 30 MG (1 mL) VIAL ONE (13:30)
[2024-04-15] MEDS: Ketorolac Tromethamine 30 MG (1 mL) VIAL IVP SCH (13:32)
[2024-04-15] MEDS: Sodium Chloride 0.9% 1,000 ML IV SCH (13:34)
[2024-04-15 16:19] VITALS: BMI 41.6
[2024-04-15] MEDS: CEFAZOLIN 2 GM in Sodium Chloride 0.9% 100 ML IVPB SCH (18:25)
[2024-04-15] MEDS: Losartan 25 MG TAB PO SCH (20:27)
[2024-04-15] MEDS: Atorvastatin Calcium 20 MG TAB PO SCH (20:27)
[2024-04-15] MEDS: Aspirin 81 mg Enteric Coated Tablet PO SCH (20:27)
[2024-04-15] MEDS: Vancomycin (BATCH) 1.5 GM in Premix 1 BAG IVPB SCH (20:27)
[2024-04-15] MEDS: traMADol HCl 50 MG TAB PO PRN (22:41)
[2024-04-16 05:45] LABS: Hematocrit 34.7 % (36.0-47.0); Hemoglobin 11.3 g/dL (12.0-16.0); Mean Corpuscular HGB CONC 32.6 g/dL (32.0-36.0); Mean Corpuscular Hemoglobin 28.2 pg (27.0-31.0); Mean Corpuscular Volume 86.5 fL (78.0-98.0); Mean Platelet Volume 10.1 fL (7.4-10.4); Platelet Count 277 10x3/uL (130-400); RBC Distribution Width 14.2 % (11.5-14.5); Red Blood Cell (RBC) Count 4.01 mill/uL (4.20-5.40)
[2024-04-16 08:36] VITALS: BP 101/63; TEMP 97.4
[2024-04-16] MEDS: HYDROcodone/Acetaminophen 10/325 mg Tablet PO PRN (09:56)
[2024-04-16] MEDS: BuPROPion XL 150 MG ER.TAB PO SCH (09:57)
[2024-04-16] MEDS: Escitalopram Oxalate 20 mg Tablet PO SCH (09:57)
[2024-04-16] MEDS: Multivitamin W/ Minerals 1 TAB PO SCH (09:57)
[2024-04-16] MEDS: Ferrous Gluconate 324 MG TAB PO SCH (09:58)
[2024-04-16] MEDS: Senokot S 8.6-50 MG TAB PO SCH (09:58)
== END 2024-04-16 12:50 | disposition home or self-care (01) ==
LOC: SDC 07:00 → SURG A 14:30
PROVIDERS: ADMIT Orthopaedic Surgery; ATTEND Orthopaedic Surgery
PROC: 0SRD0JZ Replacement of Left Knee Joint with Synthetic Substitute, Open Approach (ICD-10-PCS; principal; 2024-04-16)
PROC: 0S9C3ZZ Drainage of Right Knee Joint, Percutaneous Approach (ICD-10-PCS; 2024-04-16)
DX: M17.0 Bilateral primary osteoarthritis of knee (principal); F32.A Depression, unspecified; E66.9 Obesity, unspecified; E78.5 Hyperlipidemia, unspecified; G47.30 Sleep apnea, unspecified; Z79.899 Other long term (current) drug therapy
CPT/HCPCS: 36415; 85027; A4306; C1713; C1776; C1889; J0665; J1030; J1885; J2001; J2250; J2405; J2704; J2795; J3010; J3370; J3490